=== PATIENT | male | born 1990 | race Hispanic/Latino ===

== ENCOUNTER 2019-12-13 12:54 | Inpatient (IN) | payer OTHER ==
[~2019-12-13] VITALS: Ht 157.5 cm; Wt 113.4 kg
[2019-12-13] MEDS ORDERED: AZITHROMYCIN 500MG+NS 250ML 250 ML IV ONE (13:38)
[2019-12-13] MEDS ORDERED: CEFTRIAXONE SODIUM 1 GM ONE ×2 (13:39→21:33)
[2019-12-13] MEDS ORDERED: METHYLPREDNISOLONE SOD SUCC 40MG/ML 1ML ONE ×2 (13:39→19:02)
[2019-12-13] MEDS ORDERED: ALBUTEROL INHALER 90MCG/INH IH ONE (13:41)
[2019-12-13] MEDS ORDERED: ACETAMINOPHEN EXTRA STRENGTH 500 MG TABLET ONE (13:42)
[2019-12-13 13:52] LABS: ABG BASE EXCESS 1.6 mmol/L (-2.0-3.0); ABG HCO3 23.8 mmol/L (21.0-28.0); ABG PCO2 31 mmHg (35-48)
[2019-12-13 14:44] LABS: BASOPHILS % (AUTO) 0.1 % (0.0-5.0); HEMATOCRIT 42.8 % (42-54); LYMPHOCYTES % (AUTO) 8.9 % (21.0-51.0); MEAN CORPUSCULAR HEMOGLOBIN 30.1 pg (27.0-33.0); MEAN CORPUSCULAR HGB CONC 34.3 g/dL (32.0-36.0); MEAN CORPUSCULAR VOLUME 87.7 fL (79-99); MONOCYTES % (AUTO) 3.9 % (3.0-13.0); NEUTROPHILS % (AUTO) 86.3 % (40.0-77.0); PLATELET COUNT (AUTO) 226 K/uL (130-400); RED BLOOD CELL COUNT(AUTO) 4.88 MIL/uL (4.50-6.20); RED CELL DISTRIBUTION WIDTH 12.4 % (11.0-15.5)
[2019-12-13 14:55] LABS: CARBON DIOXIDE 29 mmol/L (21-32); CHLORIDE 98 mmol/L (101-111); CREATININE 0.8 mg/dL (0.5-1.5); GLOMERULAR FILTR. RATE CALC 121 mL/min (>60); GLUCOSE,RANDOM 115 mg/dL (70-105); POTASSIUM 3.5 mmol/L (3.5-5.1); SODIUM SERUM 137 mmol/L (136-145); UREA NITROGEN, BLOOD 9 mg/dL (7-18)
[2019-12-13 15:00] LABS: APPEARANCE,URINE Clear (CLEAR); BILIRUBIN,URINE Negative (NEGATIVE); COLOR,URINE Dark Yellow (YELLOW); GLUCOSE, URINE (UA) Negative (NEGATIVE); KETONES,URINE Trace mg/dL (NEGATIVE); LEUKOCYTE ESTERASE ,URINE Negative (NEGATIVE); NITRATE,URINE Negative (NEGATIVE); OCCULT BLOOD,URINE Negative (NEGATIVE); PROTEIN,URINE POS 2+ mg/dL (NEGATIVE)
[2019-12-13 15:04] LABS: INR 0.91 (0.85-1.15); PARTIAL THROMBOPLASTIN TIME 28.8 SEC (26.3-35.5); PROTHROMBIN TIME 9.9 SEC (9.6-11.6)
[2019-12-13 15:06] LABS: ALANINE AMINOTRANSFERASE 64 U/L (12-78); ASPARTATE AMINOTRANSFERASE 31 U/L (10-37); BILIRUBIN,TOTAL 0.6 mg/dL (0.2-1.0); CREATINE KINASE, TOTAL 34 U/L (21-232); MYOGLOBIN 22 ng/mL (10-92); TOTAL PROTEIN, SERUM 7.4 g/dL (6.0-8.3); TROPONIN I < 0.04 ng/mL (0.00-0.06)
[2019-12-13 15:25] LABS: BACTERIA,URINE Rare /HPF (None Seen); MUCUS,URINE Rare LPF (None Seen); RBC,URINE 0-1 /HPF (0-1); SQUAMOUS EPITHELIAL CELL,UR Few /HPF (0-2)
[2019-12-13] MEDS ORDERED: CEFTRIAXONE SODIUM 1 GM IVP SCH (18:00)
[2019-12-13] MEDS ORDERED: DOXYCYCLINE 100MG+NS 250ML IV SCH (18:00)
[2019-12-13] MEDS ORDERED: MAG HYDROX/AL HYDROX/SIMETH ES 30 ML SUSP UDCUP PO PRN (18:00)
[2019-12-13] MEDS ORDERED: ONDANSETRON HCL 4 MG/2 ML VIAL IV PRN (18:00)
[2019-12-13] MEDS ORDERED: DIPHENHYDRAMINE HCL 25 MG CAPSULE PO PRN (18:00)
[2019-12-13] MEDS ORDERED: LACTULOSE 20 GM/30 ML UDCUP PO PRN (18:00)
[2019-12-13] MEDS ORDERED: ACETAMINOPHEN 325 MG TAB PO PRN (18:00)
[2019-12-13] MEDS ORDERED: DiphenhydrAMINE HCL 50 MG/ML VIAL IV PRN (18:00)
[2019-12-13] MEDS ORDERED: NITROGLYCERIN 0.4 MG SL TAB SL PRN (18:00)
[2019-12-13] MEDS ORDERED: ERGOCALCIFEROL (VITAMIN D2) 50,000 UNIT CAPSULE PO ONE (18:00)
[2019-12-13] MEDS ORDERED: HYDRALAZINE HCL 20 MG/ML VIAL IV PRN (18:00)
[2019-12-13 18:26] LABS: HEMOGLOBIN A1C 5.8 % (4.0-6.0)
[2019-12-13] MEDS ORDERED: BENZONATATE 100 MG CAPSULE PO ONE (20:27)
[2019-12-13] MEDS ORDERED: FUROSEMIDE 10 MG/ML 4ML VIAL ONE (20:27)
[2019-12-13] MEDS ORDERED: METHYLPREDNISOLONE SOD SUCC 125MG/2ML VIAL ONE (20:28)
[2019-12-13] MEDS: FAMOTIDINE 20MG TAB 20 MG TAB PO SCH (21:00)
[2019-12-13] MEDS ORDERED: DOXYCYCLINE 100MG+NS 250ML 250 ML IV ONE (21:33)
[2019-12-13] MEDS ORDERED: GUAIFENESIN-DM 200/20 MG 10 ML ONE (21:33)
[2019-12-13] MEDS ORDERED: ERGOCALCIFEROL (VITAMIN D2) 50,000 UNIT CAPSULE ONE (21:37)
[2019-12-13] MEDS: DOXYCYCLINE 100MG+NS 250ML 250 ML IV SCH (21:50)
[2019-12-13] MEDS: GUAIFENESIN-DM 200/20 MG 10 ML PO PRN (21:50)
[2019-12-13] MEDS: BENZONATATE 100 MG CAPSULE PO SCH (21:50)
[2019-12-13] MEDS: ACETYLCYSTEINE 600 MG CAPSULE PO SCH (21:50)
[2019-12-13] MEDS: FUROSEMIDE 10 MG/ML 4ML VIAL IVP SCH (21:50)
--- NOTE | 2019-12-13 21:50 | NUR ---
MEDS SHIFT ASSESSMENT DONE, PLEASE REFER TO CHART. DUE MEDS ADMINISTERED, TOLERATED WELL. ASSISTED WITH BEDPAN AND URINAL. KEPT RESTED AND COMFORTABLE WITH HOB ELEVATED. WILL MONITOR CLOSELY. Addendum: 12/14/19 at 0358 by ORIN GUSTAFSON RN RN Amended: Links added.
[2019-12-13] MEDS: METHYLPREDNISOLONE SOD SUCC 40MG/ML 1ML IVP SCH (22:05)
--- NOTE | 2019-12-14 02:00 | NUR ---
ROUNDS PT RESTING WELL, FAIRLY ASLEEP ON 100% NON-REBREATHER MASK. KEPT UNDISTURBED FOR NOW. WILL MONITOR PT.
[2019-12-14 04:00] VITALS: BP 130/79
[2019-12-14] MEDS ORDERED: PHARMACY COMMUNICATION MISC SCH (04:00)
--- NOTE | 2019-12-14 05:00 | NUR ---
DRAW BLOOD DRAWN FOR LAB AND SENT VIA TUBE SYSTEM. WATER AND JELL-O PROVIDED REQUESTED. TECH AED TO ASSIST PT WITH BEDPAN. FOR MORE CARE.
[2019-12-14 05:33] LABS: BASOPHILS % (AUTO) 0.1 % (0.0-5.0); HEMATOCRIT 41.6 % (42-54); LYMPHOCYTES % (AUTO) 4.8 % (21.0-51.0); MEAN CORPUSCULAR HEMOGLOBIN 30.3 pg (27.0-33.0); MEAN CORPUSCULAR HGB CONC 33.9 g/dL (32.0-36.0); MEAN CORPUSCULAR VOLUME 89.5 fL (79-99); MONOCYTES % (AUTO) 1.5 % (3.0-13.0); NEUTROPHILS % (AUTO) 92.9 % (40.0-77.0); PLATELET COUNT (AUTO) 240 K/uL (130-400); RED BLOOD CELL COUNT(AUTO) 4.65 MIL/uL (4.50-6.20); RED CELL DISTRIBUTION WIDTH 12.5 % (11.0-15.5)
[2019-12-14 05:46] LABS: BILIRUBIN,TOTAL 0.4 mg/dL (0.2-1.0); CREATININE 0.7 mg/dL (0.5-1.5); TOTAL PROTEIN, SERUM 7.4 g/dL (6.0-8.3)
[2019-12-14 06:27] LABS: CRP QUANTITATIVE 321.1 mg/L (0.00-9.0)
[2019-12-14 06:54] LABS: ALBUMIN 2.7 g/dL (3.5-5.0)
--- NOTE | 2019-12-14 08:30 | NUR ---
ASSUMED CARE OF PATIENT PATIENT O X 2, REORIENTED PATIENT TO TIME STATES, "I HAVEN'T SLEPT IN 2 DAYS. HOB 30 DEGREES. RESPIRATIONS NOTED TO BE LABORED AT TIMES OF EXERTION INCLUDING TALKING AND UPON REPOSITIONING. OXYGEN @ 100% NON REBREATHER MASK. NOTED TO DESATURATED WHEN REPOSITIONED OR EXERTION INCLUDING TALKING O2 SATURATIONS NOTED TO DROP TO 80'S. PT INSTRUCTED TO DO RELAXATION BREATHING EXERCISES. PT VOIDS PER URINAL. REPOSITIONED PATIENT IN THE BED. BED IN LOWEST POSITION. SIDE RAILS UP X 2.
[2019-12-14 08:45] VITALS: BP 146/77
[2019-12-14] MEDS: FUROSEMIDE 10 MG/ML 4ML VIAL IVP SCH ×2 (09:00→21:00)
[2019-12-14] MEDS: ZINC SULFATE 220 CAPSULE PO SCH (09:00)
[2019-12-14] MEDS: ACETYLCYSTEINE 600 MG CAPSULE PO SCH ×2 (09:00→21:00)
[2019-12-14] MEDS: DOXYCYCLINE 100MG+NS 250ML 250 ML IV SCH ×2 (09:00→21:00)
[2019-12-14] MEDS: CEFTRIAXONE SODIUM 1 GM IVP SCH ×2 (09:00→21:00)
[2019-12-14] MEDS: BENZONATATE 100 MG CAPSULE PO SCH ×3 (09:00→21:00)
[2019-12-14] MEDS: FAMOTIDINE 20MG TAB 20 MG TAB PO SCH ×2 (09:00→21:00)
[2019-12-14] MEDS: ASCORBIC ACID 500 MG TAB PO SCH (09:00)
[2019-12-14] MEDS: METHYLPREDNISOLONE SOD SUCC 40MG/ML 1ML IVP SCH ×3 (09:00→21:00)
[2019-12-14 12:30] VITALS: BP 119/74
[2019-12-14] MEDS ORDERED: ASCORBIC ACID 500 MG TAB ONE (12:30)
[2019-12-14] MEDS ORDERED: DOXYCYCLINE 100MG+NS 250ML 250 ML IV ONE (12:30)
[2019-12-14] MEDS ORDERED: GUAIFENESIN-DM 200/20 MG 10 ML ONE (12:30)
[2019-12-14] MEDS ORDERED: BENZONATATE 100 MG CAPSULE PO ONE ×2 (12:31→20:13)
[2019-12-14] MEDS ORDERED: ZINC SULFATE 220 CAPSULE ONE (12:31)
[2019-12-14] MEDS ORDERED: METHYLPREDNISOLONE SOD SUCC 125MG/2ML VIAL ONE (12:31)
[2019-12-14] MEDS ORDERED: FUROSEMIDE 10 MG/ML 4ML VIAL ONE (12:31)
[2019-12-14] MEDS ORDERED: ACETAMINOPHEN 325 MG TAB ONE ×2 (12:32→16:18)
[2019-12-14] MEDS ORDERED: FAMOTIDINE/PF 20 MG/2 ML VIAL IV ONE (12:32)
[2019-12-14] MEDS: GUAIFENESIN-DM 200/20 MG 10 ML PO PRN (12:40)
[2019-12-14] MEDS: ACETAMINOPHEN 325 MG TAB PO PRN (12:40)
--- NOTE | 2019-12-14 15:00 | NUR ---
REPORT GIVEN TO BOOGIE OCEAN EXPORT ACCOUNT MANAGER NURSE TO ASSUME CARE OF PATIENT.
[2019-12-14] MEDS ORDERED: DOXYCYCLINE HYCLATE 100 MG TABLET PO ONE (20:12)
[2019-12-14] MEDS ORDERED: FUROSEMIDE 40 MG TABLET ONE (20:12)
[2019-12-14] MEDS ORDERED: METHYLPREDNISOLONE SOD SUCC 40MG/ML 1ML ONE (20:12)
[2019-12-14] MEDS ORDERED: CEFTRIAXONE SODIUM 1 GM ONE (20:13)
--- NOTE | 2019-12-14 23:11 | NUR ---
PATIENT BEING TRANSFERRED TO ROOM 421. REPORT GIVEN TO COURT MARIE RN. VITALS STABLE. AFEBRILE. NO SIGNS OF DISTRESS NOTED UPON TRANSFER. Addendum: 12/14/19 at 2313 by ROBI MARTINEZ RN RN Amended: Links added.
[2019-12-14 23:20] VITALS: BP 122/79
--- NOTE | 2019-12-14 23:20 | NUR ---
PT ARRIVED TO ROOM 421, VIA STRETCHER. PT ON NRB. DENIES PAIN. NO DISTRESS NOTED. STATES HE HAS DIFFICULTY AMBULATING D/T NOT AMBULATING FOR A COUPLE OF DAYS. BED TO LOWEST LEVEL. RAILS UP X2. CALL LIGHT WITHIN REACH.
[2019-12-15 03:55] VITALS: BP 141/96
[2019-12-15 05:43] LABS: BASOPHILS % (AUTO) 0.1 % (0.0-5.0); HEMATOCRIT 43.2 % (42-54); MEAN CORPUSCULAR HEMOGLOBIN 29.8 pg (27.0-33.0); MEAN CORPUSCULAR HGB CONC 33.3 g/dL (32.0-36.0); MEAN CORPUSCULAR VOLUME 89.3 fL (79-99); MONOCYTES % (AUTO) 4.1 % (3.0-13.0); NEUTROPHILS % (AUTO) 88.8 % (40.0-77.0); PLATELET COUNT (AUTO) 284 K/uL (130-400); RED BLOOD CELL COUNT(AUTO) 4.84 MIL/uL (4.50-6.20); RED CELL DISTRIBUTION WIDTH 12.1 % (11.0-15.5)
[2019-12-15 05:59] LABS: ALBUMIN 2.7 g/dL (3.5-5.0); BILIRUBIN,TOTAL 0.5 mg/dL (0.2-1.0); CREATININE 0.9 mg/dL (0.5-1.5); CRP QUANTITATIVE 145.5 mg/L (0.00-9.0); POTASSIUM 3.6 mmol/L (3.5-5.1); TOTAL PROTEIN, SERUM 7.2 g/dL (6.0-8.3)
[2019-12-15] MEDS: PHARMACY COMMUNICATION** REMDESIVIR ORDER MISC SCH ×3 (06:45→22:45)
[2019-12-15 08:00] VITALS: BP 126/66
[2019-12-15] MEDS: FAMOTIDINE 20MG TAB 20 MG TAB PO SCH ×2 (09:00→21:00)
[2019-12-15] MEDS: CEFTRIAXONE SODIUM 1 GM IVP SCH ×2 (11:01→21:59)
[2019-12-15] MEDS: METHYLPREDNISOLONE SOD SUCC 40MG/ML 1ML IVP SCH ×3 (11:02→22:02)
[2019-12-15] MEDS: ACETYLCYSTEINE 600 MG CAPSULE PO SCH ×2 (11:02→22:03)
[2019-12-15] MEDS: ZINC SULFATE 220 CAPSULE PO SCH (11:03)
[2019-12-15] MEDS: BENZONATATE 100 MG CAPSULE PO SCH ×3 (11:03→22:02)
[2019-12-15] MEDS: ASCORBIC ACID 500 MG TAB PO SCH (11:03)
[2019-12-15] MEDS: ENOXAPARIN SODIUM 60 MG/0.6 ML SQ SCH (11:05)
[2019-12-15 11:15] VITALS: BP 143/94
[2019-12-15] MEDS: DOXYCYCLINE 100MG+NS 250ML 250 ML IV SCH ×2 (12:13→22:04)
--- NOTE | 2019-12-15 13:30 | NUR ---
PT IV LEAKING, INFUSION STOPPED. ATTEMPTED TO INSERT NEW IV, THIS NURSE WAS UNSUCCESSFUL.
[2019-12-15 16:00] VITALS: BP 122/87
--- NOTE | 2019-12-15 17:50 | NUR ---
-PT IS AWAKE AND ORIENTED UPON INITIAL ASSESSMENT. PT HAS ON NON-REBREATHER WHILE PRONING. PT OBSERVED WITH SOME SHORTNESS OF BREATH WITH EXERTION WHILE TALKING. PT ASKED FOR A MOMENT TO 'CATCH HIS BREATH.' PT ABLE TO CALM HIMSELF USING PURSED LIP TECHNIQUES. UPDATED PT WITH PLAN OF CARE, PT ADVISED TO CALL FOR ASSISTANCE AND THAT HE IS ON BEDREST, PT AGREES TO PLAN OF CARE. POSSESSIONS WITHIN REACH.
--- NOTE | 2019-12-15 18:27 | NUR ---
CM NOTE SW attempted to reach patient to complete initial assessment but there was no answer. No other next of kin noted on patient's demographic sheet.
[2019-12-15] MEDS ORDERED: REMDESIVIR (INVESTIGATIONAL) 100 MG in SODIUM CHLORIDE 0.9% 250 ML IV SCH (19:45)
[2019-12-15 20:39] VITALS: BP 139/82
[2019-12-15] MEDS: ACETAMINOPHEN 325 MG TAB PO PRN (23:00)
[2019-12-15 23:37] VITALS: BP 122/89
[2019-12-16] MEDS: GUAIFENESIN-DM 200/20 MG 10 ML PO PRN ×2 (03:48→11:12)
--- NOTE | 2019-12-16 03:48 | NUR ---
PT EXPERIENCING A COUGHING EPISODE, PT IS INSTRUCTED TO BREATH CORRECTLY AND NOT TO HYPERVENTILATE. PT STATES HE IS SCARED D/T COUGHING UP PINK TINGE SPUTUM. PT IS ON NRB 100% AT 15L. COMFORTED PT, CHECKED HIS VITALS, BP 10/73, PULSE 70, O2 WAS AT 85% WHEN HE WAS COUGHING BUT THEN WAS UP TO 95%. ROBITUSSIN WAS GIVEN FOR COUGH, ZOFRAN WAS GIVEN FOR NAUSEA. PT HAS CALMED DOWN AND RESTING. CALL LIGHT WITHIN REACH.
[2019-12-16 04:07] VITALS: BP 108/73
[2019-12-16 06:25] LABS: BASOPHILS % (AUTO) 0.1 % (0.0-5.0); LYMPHOCYTES % (AUTO) 5.4 % (21.0-51.0); MEAN CORPUSCULAR HEMOGLOBIN 30.5 pg (27.0-33.0); MEAN CORPUSCULAR HGB CONC 33.7 g/dL (32.0-36.0); MEAN CORPUSCULAR VOLUME 90.5 fL (79-99); MONOCYTES % (AUTO) 4.2 % (3.0-13.0); NEUTROPHILS % (AUTO) 89.4 % (40.0-77.0); PLATELET COUNT (AUTO) 328 K/uL (130-400); RED BLOOD CELL COUNT(AUTO) 4.75 MIL/uL (4.50-6.20); RED CELL DISTRIBUTION WIDTH 11.8 % (11.0-15.5); WHITE BLOOD COUNT (AUTO) 7.6 K/uL (4.8-10.8)
[2019-12-16] MEDS: PHARMACY COMMUNICATION** REMDESIVIR ORDER MISC SCH ×3 (06:45→22:45)
[2019-12-16 06:52] LABS: ALBUMIN 2.7 g/dL (3.5-5.0); BILIRUBIN,TOTAL 0.6 mg/dL (0.2-1.0); CREATININE 0.7 mg/dL (0.5-1.5); CRP QUANTITATIVE 61.1 mg/L (0.00-9.0); TOTAL PROTEIN, SERUM 6.9 g/dL (6.0-8.3)
[2019-12-16 08:00] VITALS: BP 142/80
[2019-12-16] MEDS: DOXYCYCLINE 100MG+NS 250ML 250 ML IV SCH ×2 (09:00→21:43)
[2019-12-16] MEDS: PANTOPRAZOLE SODIUM 40 MG TABLET.DR PO SCH (09:13)
[2019-12-16] MEDS: ZINC SULFATE 220 CAPSULE PO SCH (09:14)
[2019-12-16] MEDS: BENZONATATE 100 MG CAPSULE PO SCH ×3 (09:14→21:44)
[2019-12-16] MEDS: ASCORBIC ACID 500 MG TAB PO SCH (09:14)
[2019-12-16] MEDS: METHYLPREDNISOLONE SOD SUCC 40MG/ML 1ML IVP SCH ×3 (09:15→21:44)
[2019-12-16] MEDS: CEFTRIAXONE SODIUM 1 GM IVP SCH ×2 (09:15→21:44)
[2019-12-16] MEDS: ENOXAPARIN SODIUM 60 MG/0.6 ML SQ SCH ×2 (09:16→21:54)
[2019-12-16] MEDS: ACETYLCYSTEINE 600 MG CAPSULE PO SCH ×2 (09:22→21:44)
[2019-12-16] MEDS: ACETAMINOPHEN 325 MG TAB PO PRN (11:17)
[2019-12-16 12:04] VITALS: BP 155/87
[2019-12-16] MEDS ORDERED: CHLORDIAZEPOXIDE HCL 25 MG CAP PO ONE (13:15)
[2019-12-16 17:06] VITALS: BP 135/90
--- NOTE | 2019-12-16 18:49 | NUR ---
rounding completed with pulmonary. new orders given and entered. Plan of care discussed with pt.
[2019-12-16 20:54] VITALS: BP 141/64
[2019-12-16] MEDS ORDERED: METHYLPREDNISOLONE SOD SUCC 40MG/ML 1ML IVP SCH (21:00)
[2019-12-17] MEDS: GUAIFENESIN-DM 200/20 MG 10 ML PO PRN (01:32)
[2019-12-17 01:53] VITALS: BP 126/76
--- NOTE | 2019-12-17 04:00 | NUR ---
pt had a dark green, runny, mucusy diarrhea BM; pt was cleaned and bedding changed; Cdiff rule-out protocol implemented at this time; pt informed to notify nursing staff should he experience another episode; Diane RN
[2019-12-17 05:01] VITALS: BP 138/79
[2019-12-17] MEDS: PHARMACY COMMUNICATION** REMDESIVIR ORDER MISC SCH ×3 (05:01→21:51)
[2019-12-17 09:44] VITALS: BP 106/68
[2019-12-17 10:04] LABS: LACTATE DEHYDROGENASE 298 U/L (81-234)
[2019-12-17] MEDS: PANTOPRAZOLE SODIUM 40 MG TABLET.DR PO SCH (10:23)
[2019-12-17] MEDS: ACETYLCYSTEINE 600 MG CAPSULE PO SCH ×2 (10:23→21:50)
[2019-12-17] MEDS: ASCORBIC ACID 500 MG TAB PO SCH (10:23)
[2019-12-17] MEDS: METHYLPREDNISOLONE SOD SUCC 40MG/ML 1ML IVP SCH ×2 (10:24→21:50)
[2019-12-17] MEDS: ENOXAPARIN SODIUM 60 MG/0.6 ML SQ SCH ×2 (10:24→21:51)
[2019-12-17] MEDS: CEFTRIAXONE SODIUM 1 GM IVP SCH ×2 (10:24→21:50)
[2019-12-17] MEDS: BENZONATATE 100 MG CAPSULE PO SCH ×3 (10:27→21:50)
[2019-12-17] MEDS: DOXYCYCLINE 100MG+NS 250ML 250 ML IV SCH ×2 (11:31→21:49)
[2019-12-17 12:23] VITALS: BP 95/40
--- NOTE | 2019-12-17 15:03 | NUR ---
Family notification Attempted to make call today and yesterday 12/16/2019 to family to make aware of patient's condition. Pt has self as next of kin. No other numbers available.
--- NOTE | 2019-12-17 16:07 | NUR ---
CALL TO PATIENT'S ROOM FOR D/C PLANNING SPOKE TO PATIENT BRIEFLY, FOR PRELIM D/C PLANNING, STATES LIVES ALONE, WOULD NOT VERIFY ADDRESS, DID ADD FATHER FOR EMERGENCY CONTACT THONG FLOYD [phone] ACTIVE, INDEPENDENT, NO DME, EMPLOYED- DCP HOME, UPDATED FAX SENT TO REGISTRATION Addendum: 12/17/19 at 1615 by MECHE GERBER RN CM Amended: Links added.
[2019-12-17 17:41] VITALS: BP 123/76
--- NOTE | 2019-12-17 18:31 | NUR ---
spoke with pt's Jose updated with pt's plan of care. 1600 unit 1 of plasma started, monitored per protocol. Pt tolerated well. Finished unit at 1815. Vitals documented and charted. Called blood bank to prepare second unit.
[2019-12-17 20:00] VITALS: BP 124/77
[2019-12-18] VITALS (7 sets, daily range): BP systolic 123–164; BP diastolic 62–94
--- NOTE | 2019-12-18 00:20 | NUR ---
ptsplasma infusion started at this time and ended at 58; pt tolerated well; no distress noted at this time. Diane RN
[2019-12-18] MEDS: PHARMACY COMMUNICATION** REMDESIVIR ORDER MISC SCH ×3 (05:05→22:45)
[2019-12-18 07:20] LABS: BASOPHILS % (AUTO) 0.1 % (0.0-5.0); HEMATOCRIT 38.9 % (42-54); LYMPHOCYTES % (AUTO) 5.1 % (21.0-51.0); MEAN CORPUSCULAR HEMOGLOBIN 30.4 pg (27.0-33.0); MEAN CORPUSCULAR HGB CONC 35.2 g/dL (32.0-36.0); MEAN CORPUSCULAR VOLUME 86.4 fL (79-99); MONOCYTES % (AUTO) 5.1 % (3.0-13.0); NEUTROPHILS % (AUTO) 87.8 % (40.0-77.0); PLATELET COUNT (AUTO) 289 K/uL (130-400); RED CELL DISTRIBUTION WIDTH 11.2 % (11.0-15.5); WHITE BLOOD COUNT (AUTO) 8.6 K/uL (4.8-10.8)
[2019-12-18 07:30] LABS: CREATININE 0.8 mg/dL (0.5-1.5); POTASSIUM 3.9 mmol/L (3.5-5.1)
[2019-12-18] MEDS: METHYLPREDNISOLONE SOD SUCC 40MG/ML 1ML IVP SCH ×2 (09:26→19:56)
[2019-12-18] MEDS: PANTOPRAZOLE SODIUM 40 MG TABLET.DR PO SCH (09:26)
[2019-12-18] MEDS: ACETYLCYSTEINE 600 MG CAPSULE PO SCH ×2 (09:26→19:56)
[2019-12-18] MEDS: BENZONATATE 100 MG CAPSULE PO SCH ×3 (09:26→19:56)
[2019-12-18] MEDS: CEFTRIAXONE SODIUM 1 GM IVP SCH ×2 (09:26→19:56)
[2019-12-18] MEDS: ASCORBIC ACID 500 MG TAB PO SCH (09:26)
[2019-12-18] MEDS: DOXYCYCLINE 100MG+NS 250ML 250 ML IV SCH ×2 (09:27→19:56)
[2019-12-18] MEDS: ENOXAPARIN SODIUM 60 MG/0.6 ML SQ SCH ×2 (09:29→19:57)
[2019-12-19] VITALS (7 sets, daily range): BP systolic 126–151; BP diastolic 69–80
[2019-12-19 06:05] LABS: BASOPHILS % (AUTO) 0.4 % (0.0-5.0); HEMATOCRIT 40.7 % (42-54); LYMPHOCYTES % (AUTO) 6.3 % (21.0-51.0); MEAN CORPUSCULAR HEMOGLOBIN 30.6 pg (27.0-33.0); MEAN CORPUSCULAR HGB CONC 35.4 g/dL (32.0-36.0); MEAN CORPUSCULAR VOLUME 86.4 fL (79-99); MONOCYTES % (AUTO) 3.8 % (3.0-13.0); NEUTROPHILS % (AUTO) 84.3 % (40.0-77.0); PLATELET COUNT (AUTO) 310 K/uL (130-400); RED BLOOD CELL COUNT(AUTO) 4.71 MIL/uL (4.50-6.20); RED CELL DISTRIBUTION WIDTH 11.2 % (11.0-15.5); WHITE BLOOD COUNT (AUTO) 8.3 K/uL (4.8-10.8)
[2019-12-19 06:49] LABS: LACTATE DEHYDROGENASE 350 U/L (81-234)
[2019-12-19] MEDS: METHYLPREDNISOLONE SOD SUCC 40MG/ML 1ML IVP SCH ×2 (08:56→21:17)
[2019-12-19] MEDS: PANTOPRAZOLE SODIUM 40 MG TABLET.DR PO SCH (08:56)
[2019-12-19] MEDS: CEFTRIAXONE SODIUM 1 GM IVP SCH (08:56)
[2019-12-19] MEDS: ASCORBIC ACID 500 MG TAB PO SCH (08:56)
[2019-12-19] MEDS: ACETYLCYSTEINE 600 MG CAPSULE PO SCH ×2 (08:56→21:17)
[2019-12-19] MEDS: ENOXAPARIN SODIUM 60 MG/0.6 ML SQ SCH ×2 (08:57→21:19)
[2019-12-19] MEDS: BENZONATATE 100 MG CAPSULE PO SCH ×3 (09:00→21:17)
[2019-12-19] MEDS: DOXYCYCLINE 100MG+NS 250ML 250 ML IV SCH ×2 (09:00→21:00)
--- NOTE | 2019-12-19 11:30 | NUR ---
PT WENT TO PRONE POSITION AND HAD SOB @78% O2. PT ON NR @ 15 LITERS. STARTED PERCUSSION TO HIS BACK WHICH HELP HIM RELAX AND INCREASE HIS 02 TO 94%. WILL CONTINUE TO MONITOR.
[2019-12-19] MEDS: DOXYCYCLINE HYCLATE 100 MG TABLET PO SCH ×2 (12:49→21:16)
[2019-12-19] MEDS ORDERED: CEFEPIME HCL 2 GM VIAL IVP SCH (14:00)
[2019-12-19] MEDS ORDERED: METHYLPREDNISOLONE SOD SUCC 40MG/ML 1ML IVP SCH (14:30)
--- NOTE | 2019-12-19 14:52 | NUR ---
PT GOT UP TO BATH NO COMPLICATION WAS ABLE TO MARIUM BATH.
[2019-12-19] MEDS ORDERED: PHARMACY COMMUNICATION MISC SCH (22:45)
[2019-12-20 03:57] VITALS: BP 135/70
[2019-12-20 06:01] LABS: HEMATOCRIT 42.3 % (42-54); MEAN CORPUSCULAR HEMOGLOBIN 30.2 pg (27.0-33.0); MEAN CORPUSCULAR VOLUME 86.3 fL (79-99); PLATELET COUNT (AUTO) 343 K/uL (130-400); RED CELL DISTRIBUTION WIDTH 11.2 % (11.0-15.5)
[2019-12-20 06:25] LABS: CREATININE 0.6 mg/dL (0.5-1.5); POTASSIUM 4.3 mmol/L (3.5-5.1)
[2019-12-20 06:58] LABS: LYMPHOCYTES % (MANUAL) 9 % (22-44); MAN.DIFF COMMENT-IMPRESSION MANUAL DIFFERENTIAL; MONOCYTES % (MANUAL) 3 % (2-9); PLATELET MORPHOLOGY COMMENT ADEQUATE; SEGMENTED NEUTROPHILS % 88 % (40-70)
[2019-12-20 07:30] VITALS: BP 125/69
--- NOTE | 2019-12-20 08:26 | NUR ---
GEORGIA KELLEY spoke with pt. who reported that he is single and resides with his mother and grandmother. Pt. is disabled and is not employed. Pt. is decision maker. Pt. does not have HH or Oxygen. Pt. receives Dialysis at [facility]/[place], MWF-AM shift Pt. has a walker at home. Pt. has provider services 2h/daily-[facility]. Pharmacy: [facility]/[place] [facility] [place] Pt. has Medicare A&B Pt. with supportive family. Pt's. mother to provide transportation at discharge. Gwen Keller [address] [facility] [phone] Addendum: 12/20/19 at 0847 by CAMPOS MARTINEZ SS Disregard Note Wrong Patient: Documented on wrong patient.
[2019-12-20] MEDS: ASCORBIC ACID 500 MG TAB PO SCH (09:03)
[2019-12-20] MEDS: BENZONATATE 100 MG CAPSULE PO SCH ×3 (09:03→20:44)
[2019-12-20] MEDS: DOXYCYCLINE HYCLATE 100 MG TABLET PO SCH ×2 (09:03→20:45)
[2019-12-20] MEDS: PANTOPRAZOLE SODIUM 40 MG TABLET.DR PO SCH (09:03)
[2019-12-20] MEDS: CEFEPIME HCL 2 GM VIAL IVP SCH ×2 (09:03→20:44)
[2019-12-20] MEDS: ACETYLCYSTEINE 600 MG CAPSULE PO SCH ×2 (09:03→20:44)
[2019-12-20] MEDS: FUROSEMIDE 10 MG/ML 2ML VIAL IV SCH (09:04)
[2019-12-20] MEDS: METHYLPREDNISOLONE SOD SUCC 40MG/ML 1ML IVP SCH ×3 (09:04→20:44)
[2019-12-20] MEDS: ENOXAPARIN SODIUM 60 MG/0.6 ML SQ SCH ×2 (09:05→20:46)
[2019-12-20] MEDS: DOXYCYCLINE 100MG+NS 250ML 250 ML IV SCH (09:14)
[2019-12-20 11:00] VITALS: BP 123/78
[2019-12-20] MEDS: PHARMACY COMMUNICATION MISC SCH ×2 (13:15→19:15)
[2019-12-20 16:00] VITALS: BP 134/72
[2019-12-20] MEDS ORDERED: COMPOUND IV REFRIGERATED 1 EACH IVSOLN MISC PRN (16:00)
[2019-12-20] MEDS ORDERED: REMDESIVIR (EUA) 520 200 MG in SODIUM CHLORIDE 0.9% 250 ML IV SCH (16:00)
[2019-12-20 19:00] VITALS: BP 126/75
[2019-12-20 23:24] VITALS: BP 146/90
[2019-12-21] MEDS: PHARMACY COMMUNICATION MISC SCH ×4 (01:15→19:15)
[2019-12-21 03:52] VITALS: BP 116/67
[2019-12-21 06:48] LABS: BASOPHILS % (AUTO) 0.7 % (0.0-5.0); HEMATOCRIT 41.9 % (42-54); LYMPHOCYTES % (AUTO) 5.8 % (21.0-51.0); MEAN CORPUSCULAR HEMOGLOBIN 30.3 pg (27.0-33.0); MEAN CORPUSCULAR HGB CONC 35.1 g/dL (32.0-36.0); MEAN CORPUSCULAR VOLUME 86.4 fL (79-99); MONOCYTES % (AUTO) 6.3 % (3.0-13.0); NEUTROPHILS % (AUTO) 79.5 % (40.0-77.0); PLATELET COUNT (AUTO) 372 K/uL (130-400); RED BLOOD CELL COUNT(AUTO) 4.85 MIL/uL (4.50-6.20); RED CELL DISTRIBUTION WIDTH 11.2 % (11.0-15.5); WHITE BLOOD COUNT (AUTO) 9.5 K/uL (4.8-10.8)
[2019-12-21 07:31] LABS: ALBUMIN 2.8 g/dL (3.5-5.0); BILIRUBIN,DIRECT 0.1 mg/dL (0.0-0.3); BILIRUBIN,TOTAL 0.6 mg/dL (0.2-1.0); CREATININE 0.7 mg/dL (0.5-1.5); CRP QUANTITATIVE 20.7 mg/L (0.00-9.0); POTASSIUM 4.3 mmol/L (3.5-5.1); TOTAL PROTEIN, SERUM 6.5 g/dL (6.0-8.3)
[2019-12-21 08:00] VITALS: BP 119/78
[2019-12-21] MEDS: ENOXAPARIN SODIUM 60 MG/0.6 ML SQ SCH ×2 (08:18→21:20)
[2019-12-21] MEDS: ASCORBIC ACID 500 MG TAB PO SCH (08:18)
[2019-12-21] MEDS: ACETYLCYSTEINE 600 MG CAPSULE PO SCH ×2 (08:18→21:19)
[2019-12-21] MEDS: DOXYCYCLINE HYCLATE 100 MG TABLET PO SCH ×2 (08:19→21:19)
[2019-12-21] MEDS: PANTOPRAZOLE SODIUM 40 MG TABLET.DR PO SCH (08:19)
[2019-12-21] MEDS: FUROSEMIDE 10 MG/ML 2ML VIAL IV SCH (08:20)
[2019-12-21] MEDS: CEFEPIME HCL 2 GM VIAL IVP SCH ×2 (08:20→21:02)
[2019-12-21] MEDS: METHYLPREDNISOLONE SOD SUCC 40MG/ML 1ML IVP SCH ×3 (10:58→21:19)
[2019-12-21] MEDS: BENZONATATE 100 MG CAPSULE PO SCH ×3 (10:58→21:19)
[2019-12-21 12:00] VITALS: BP 120/72
[2019-12-21] MEDS: PHARMACY COMMUNICATION** REMDESIVIR ORDER MISC SCH ×2 (14:45→22:45)
[2019-12-21 16:00] VITALS: BP 106/58
[2019-12-21] MEDS: REMDESIVIR (EUA) 520 100 MG in SODIUM CHLORIDE 0.9% 250 ML IV SCH (16:53)
[2019-12-21] MEDS ORDERED: REMDESIVIR (EUA) 520 100 MG VIAL IV ONE (16:53)
[2019-12-21 19:00] VITALS: BP 128/70
[2019-12-21 23:12] VITALS: BP 122/74
[2019-12-22] MEDS: PHARMACY COMMUNICATION MISC SCH ×4 (01:15→18:37)
[2019-12-22 03:00] VITALS: BP 118/69
[2019-12-22 06:57] LABS: BASOPHILS % (AUTO) 0.7 % (0.0-5.0); HEMATOCRIT 43.8 % (42-54); LYMPHOCYTES % (AUTO) 5.3 % (21.0-51.0); MEAN CORPUSCULAR HEMOGLOBIN 30.2 pg (27.0-33.0); MEAN CORPUSCULAR HGB CONC 34.7 g/dL (32.0-36.0); MEAN CORPUSCULAR VOLUME 87.1 fL (79-99); MONOCYTES % (AUTO) 4.7 % (3.0-13.0); NEUTROPHILS % (AUTO) 81.6 % (40.0-77.0); PLATELET COUNT (AUTO) 373 K/uL (130-400); RED BLOOD CELL COUNT(AUTO) 5.03 MIL/uL (4.50-6.20); RED CELL DISTRIBUTION WIDTH 11.6 % (11.0-15.5); WHITE BLOOD COUNT (AUTO) 8.7 K/uL (4.8-10.8)
--- NOTE | 2019-12-22 07:01 | NUR ---
Patient gets SOB on exertion,remains on NRB 100% Fio2 unable to weigh patient today .
[2019-12-22 07:31] LABS: ALANINE AMINOTRANSFERASE 308 U/L (12-78); ALBUMIN 2.9 g/dL (3.5-5.0); ASPARTATE AMINOTRANSFERASE 54 U/L (10-37); BILIRUBIN,DIRECT 0.1 mg/dL (0.0-0.3); BILIRUBIN,TOTAL 0.6 mg/dL (0.2-1.0); CARBON DIOXIDE 26 mmol/L (21-32); CHLORIDE 102 mmol/L (101-111); CREATININE 0.8 mg/dL (0.5-1.5); GLOMERULAR FILTR. RATE CALC 121 mL/min (>60); GLUCOSE,RANDOM 118 mg/dL (70-105); LACTATE DEHYDROGENASE 298 U/L (81-234); POTASSIUM 4.6 mmol/L (3.5-5.1); SODIUM SERUM 135 mmol/L (136-145); TOTAL PROTEIN, SERUM 6.5 g/dL (6.0-8.3); UREA NITROGEN, BLOOD 22 mg/dL (7-18)
[2019-12-22 08:00] VITALS: BP 102/60
[2019-12-22] MEDS: CEFEPIME HCL 2 GM VIAL IVP SCH ×2 (10:32→19:35)
[2019-12-22] MEDS: METHYLPREDNISOLONE SOD SUCC 40MG/ML 1ML IVP SCH ×3 (10:33→21:16)
[2019-12-22] MEDS: FUROSEMIDE 10 MG/ML 2ML VIAL IV SCH (10:33)
[2019-12-22] MEDS: ASCORBIC ACID 500 MG TAB PO SCH (10:34)
[2019-12-22] MEDS: DOXYCYCLINE HYCLATE 100 MG TABLET PO SCH ×2 (10:34→19:37)
[2019-12-22] MEDS: ENOXAPARIN SODIUM 60 MG/0.6 ML SQ SCH ×2 (10:34→19:37)
[2019-12-22] MEDS: PANTOPRAZOLE SODIUM 40 MG TABLET.DR PO SCH (10:34)
[2019-12-22] MEDS: ACETYLCYSTEINE 600 MG CAPSULE PO SCH ×2 (10:34→19:37)
[2019-12-22] MEDS: BENZONATATE 100 MG CAPSULE PO SCH ×3 (10:34→19:37)
[2019-12-22 12:00] VITALS: BP 128/61
[2019-12-22 16:00] VITALS: BP 117/70
[2019-12-22] MEDS: REMDESIVIR (EUA) 520 100 MG in SODIUM CHLORIDE 0.9% 250 ML IV SCH (16:00)
[2019-12-22] MEDS ORDERED: REMDESIVIR (EUA) 520 100 MG VIAL IV ONE (16:53)
--- NOTE | 2019-12-22 18:38 | NUR ---
pt and oriented, denies pain and discomfort. pt proned 75% of the shift. pt continues with Venti mask,
[2019-12-22 19:20] VITALS: BP 111/68
[2019-12-22] MEDS ORDERED: HYDROMORPHONE HCL 2 MG/ML VIAL ONE (21:16)
[2019-12-22 23:34] VITALS: BP 124/75
[2019-12-23] MEDS: PHARMACY COMMUNICATION MISC SCH ×3 (00:20→19:15)
[2019-12-23] MEDS ORDERED: MORPHINE SULFATE 2 MG/ML 1ML SYG ONE (00:41)
[2019-12-23] MEDS: HYDROMORPHONE HCL 2 MG/ML VIAL IVP PRN ×3 (01:46→22:39)
[2019-12-23 03:30] VITALS: BP 114/71
[2019-12-23 07:46] LABS: BASOPHILS % (AUTO) 0.6 % (0.0-5.0); HEMATOCRIT 44.8 % (42-54); LYMPHOCYTES % (AUTO) 3.5 % (21.0-51.0); MEAN CORPUSCULAR HEMOGLOBIN 30.7 pg (27.0-33.0); MEAN CORPUSCULAR VOLUME 87.7 fL (79-99); MONOCYTES % (AUTO) 5.2 % (3.0-13.0); NEUTROPHILS % (AUTO) 84.7 % (40.0-77.0); PLATELET COUNT (AUTO) 349 K/uL (130-400); RED BLOOD CELL COUNT(AUTO) 5.11 MIL/uL (4.50-6.20); RED CELL DISTRIBUTION WIDTH 11.6 % (11.0-15.5); WHITE BLOOD COUNT (AUTO) 12.5 K/uL (4.8-10.8)
[2019-12-23] MEDS: ACETYLCYSTEINE 600 MG CAPSULE PO SCH ×2 (08:17→20:46)
[2019-12-23] MEDS: ASCORBIC ACID 500 MG TAB PO SCH (08:17)
[2019-12-23] MEDS: DOXYCYCLINE HYCLATE 100 MG TABLET PO SCH ×2 (08:17→20:46)
[2019-12-23] MEDS: PANTOPRAZOLE SODIUM 40 MG TABLET.DR PO SCH (08:17)
[2019-12-23] MEDS: CEFEPIME HCL 2 GM VIAL IVP SCH ×2 (08:17→20:45)
[2019-12-23] MEDS: FUROSEMIDE 10 MG/ML 2ML VIAL IV SCH (08:21)
[2019-12-23] MEDS: ACETAMINOPHEN 325 MG TAB PO PRN (08:21)
[2019-12-23] MEDS: ENOXAPARIN SODIUM 60 MG/0.6 ML SQ SCH ×2 (08:22→20:46)
[2019-12-23] MEDS: BENZONATATE 100 MG CAPSULE PO SCH ×3 (08:24→20:46)
[2019-12-23] MEDS: METHYLPREDNISOLONE SOD SUCC 40MG/ML 1ML IVP SCH ×3 (08:25→20:46)
[2019-12-23 08:31] LABS: ALANINE AMINOTRANSFERASE 325 U/L (12-78); ASPARTATE AMINOTRANSFERASE 46 U/L (10-37); BILIRUBIN,TOTAL 0.6 mg/dL (0.2-1.0); CARBON DIOXIDE 25 mmol/L (21-32); CHLORIDE 103 mmol/L (101-111); CREATININE 0.7 mg/dL (0.5-1.5); GLOMERULAR FILTR. RATE CALC 142 mL/min (>60); GLUCOSE,RANDOM 113 mg/dL (70-105); POTASSIUM 4.3 mmol/L (3.5-5.1); SODIUM SERUM 137 mmol/L (136-145); TOTAL PROTEIN, SERUM 6.7 g/dL (6.0-8.3); UREA NITROGEN, BLOOD 24 mg/dL (7-18)
[2019-12-23 09:27] VITALS: BP 107/60
[2019-12-23 11:37] VITALS: BP 107/58
[2019-12-23 16:41] VITALS: BP 128/74
[2019-12-23] MEDS ORDERED: REMDESIVIR (EUA) 520 100 MG VIAL IV ONE (17:14)
[2019-12-23] MEDS: REMDESIVIR (EUA) 520 100 MG in SODIUM CHLORIDE 0.9% 250 ML IV SCH (17:14)
--- NOTE | 2019-12-23 19:00 | NUR ---
distress DAY RN IN ROOM WITH PATIENT WHO IS SATURATING IN THE 80'S ON NRB AT 15 LPM. PATIENT WAS PRONE BUT WAS STILL SATURATING IN AT 83%. A RAPID RESPONSE WAS CALLED FOR THIS PATIENT. Dilip [employer] SYSTEM[employer] REQUIREMENTS PLANNER ARRIVED TO GIVE ORDERS FOR PATIENT. AN ABG AND LABS WERE ORDERED AND A CALL TO DR AUGUST WAS MADE. DR AUGUST CALLED BACK AND WAS INFORMED OF PATIENT CONDITION. HE ORDERED HIGH FLOW OXYGEN AT 60 LITERS AND TO PRONE PATIENT IF HE DID NOT IMPROVE IN ONE HOUR, PATIENT MAY HAVE TO BE INTUBATED. PATIENT DID RESPOND TO HIGH FLOW OXYGEN AND HIS SATURATION CAME UP TO 91%. PATIENT WAS ALSO STARED ON ALBUTEROL INHALER EVERY FOUR HOURS. WILL CONTINUE TO MONITOR PATIENT THROUGH OUT THE NIGHT.
[2019-12-23 19:45] LABS: ABG BASE EXCESS -4.2 mmol/L (-2.0-3.0); ABG HCO3 19.7 mmol/L (21.0-28.0); ABG OXYGEN SATURATION 83.6 % (95.0-99.0); ABG PCO2 33 mmHg (35-48)
[2019-12-23 19:54] LABS: HEMATOCRIT 47.9 % (42-54); MEAN CORPUSCULAR HEMOGLOBIN 30.5 pg (27.0-33.0); MEAN CORPUSCULAR HGB CONC 34.7 g/dL (32.0-36.0); MEAN CORPUSCULAR VOLUME 87.9 fL (79-99); PLATELET COUNT (AUTO) 350 K/uL (130-400); RED BLOOD CELL COUNT(AUTO) 5.45 MIL/uL (4.50-6.20); RED CELL DISTRIBUTION WIDTH 11.8 % (11.0-15.5); WHITE BLOOD COUNT (AUTO) 14.1 K/uL (4.8-10.8)
[2019-12-23] MEDS ORDERED: ALBUTEROL INHALER 90MCG/INH IH PRN (20:15)
[2019-12-23 20:27] LABS: ALANINE AMINOTRANSFERASE 402 U/L (12-78); ALBUMIN 3.2 g/dL (3.5-5.0); ASPARTATE AMINOTRANSFERASE 71 U/L (10-37); BILIRUBIN,TOTAL 0.7 mg/dL (0.2-1.0); CARBON DIOXIDE 26 mmol/L (21-32); CHLORIDE 102 mmol/L (101-111); CREATINE KINASE, TOTAL 53 U/L (21-232); CREATININE 1.1 mg/dL (0.5-1.5); GLOMERULAR FILTR. RATE CALC 84 mL/min (>60); GLUCOSE,RANDOM 150 mg/dL (70-105); MYOGLOBIN 47 ng/mL (10-92); POTASSIUM 4.6 mmol/L (3.5-5.1); SODIUM SERUM 135 mmol/L (136-145); TOTAL PROTEIN, SERUM 6.2 g/dL (6.0-8.3); TROPONIN I < 0.04 ng/mL (0.00-0.06); UREA NITROGEN, BLOOD 26 mg/dL (7-18)
[2019-12-23 20:34] LABS: LYMPHOCYTES % (MANUAL) 5 % (22-44); MAN.DIFF COMMENT-IMPRESSION MANUAL DIFFERENTIAL; REACTIVE LYMPHOCYTES 1 % (0-0); SEGMENTED NEUTROPHILS % 94 % (40-70)
[2019-12-23] MEDS: MORPHINE SULFATE 2 MG/ML 1ML SYG IVP PRN (21:16)
[2019-12-23 21:48] VITALS: BP 104/59
[2019-12-23] MEDS: ALBUTEROL INHALER 90MCG/INH IH SCH (21:51)
[2019-12-23] MEDS ORDERED: MORPHINE SULFATE 2 MG/ML 1ML SYG IVP ONE (22:10)
[2019-12-24 00:06] VITALS: BP 107/57
[2019-12-24] MEDS: ALBUTEROL INHALER 90MCG/INH IH SCH ×6 (00:15→19:27)
[2019-12-24] MEDS: PHARMACY COMMUNICATION MISC SCH ×6 (00:47→19:29)
[2019-12-24] MEDS: HYDROMORPHONE HCL 2 MG/ML VIAL IVP PRN ×5 (00:55→22:57)
[2019-12-24] MEDS: MORPHINE SULFATE 2 MG/ML 1ML SYG IVP PRN ×3 (04:05→22:05)
[2019-12-24 06:02] VITALS: BP 113/64
[2019-12-24 06:25] LABS: BASOPHILS % (AUTO) 0.5 % (0.0-5.0); LYMPHOCYTES % (AUTO) 2.6 % (21.0-51.0); MEAN CORPUSCULAR HEMOGLOBIN 30.7 pg (27.0-33.0); MEAN CORPUSCULAR HGB CONC 35.1 g/dL (32.0-36.0); MEAN CORPUSCULAR VOLUME 87.5 fL (79-99); MONOCYTES % (AUTO) 6.5 % (3.0-13.0); PLATELET COUNT (AUTO) 358 K/uL (130-400); RED BLOOD CELL COUNT(AUTO) 5.37 MIL/uL (4.50-6.20); RED CELL DISTRIBUTION WIDTH 11.9 % (11.0-15.5); WHITE BLOOD COUNT (AUTO) 17.5 K/uL (4.8-10.8)
[2019-12-24 06:44] LABS: CARBON DIOXIDE 25 mmol/L (21-32); CHLORIDE 102 mmol/L (101-111); CREATININE 0.8 mg/dL (0.5-1.5); GLOMERULAR FILTR. RATE CALC 121 mL/min (>60); GLUCOSE,RANDOM 124 mg/dL (70-105); LACTATE DEHYDROGENASE 330 U/L (81-234); POTASSIUM 4.5 mmol/L (3.5-5.1); SODIUM SERUM 138 mmol/L (136-145); UREA NITROGEN, BLOOD 24 mg/dL (7-18)
[2019-12-24 08:00] VITALS: BP 97/54
[2019-12-24] MEDS: ASCORBIC ACID 500 MG TAB PO SCH (09:13)
[2019-12-24] MEDS: DOXYCYCLINE HYCLATE 100 MG TABLET PO SCH ×2 (09:13→19:26)
[2019-12-24] MEDS: PANTOPRAZOLE SODIUM 40 MG TABLET.DR PO SCH (09:13)
[2019-12-24] MEDS: ACETYLCYSTEINE 600 MG CAPSULE PO SCH ×2 (09:14→19:26)
[2019-12-24] MEDS: BENZONATATE 100 MG CAPSULE PO SCH ×3 (09:14→19:26)
[2019-12-24] MEDS: METHYLPREDNISOLONE SOD SUCC 40MG/ML 1ML IVP SCH ×3 (09:15→19:27)
[2019-12-24] MEDS: CEFEPIME HCL 2 GM VIAL IVP SCH ×2 (09:16→19:25)
[2019-12-24] MEDS: ENOXAPARIN SODIUM 60 MG/0.6 ML SQ SCH ×2 (09:16→19:26)
[2019-12-24] MEDS: FUROSEMIDE 10 MG/ML 2ML VIAL IV SCH (09:18)
--- NOTE | 2019-12-24 10:20 | NUR ---
RDSCREEN - LOS X 11 Pt admitted with Acute respiratory failure, positive COVID-19 PNA. Pt tolerating 60gm CCD with no report of GI distress. Poor PO intake. WBC 17.5, LDH 330, Alb 3.2. LBM 12/20/19. Recommend continue 60gm CC diet order Recommend Glucerna BID Recommend 60mL ProMod QD RD to continue to monitor. Please notify RD as additional nutrition concerns arise. Thank you.
[2019-12-24 11:24] VITALS: BP 104/54
[2019-12-24] MEDS ORDERED: LORAZEPAM 2 MG TABLET PO PRN (15:00)
[2019-12-24 15:48] VITALS: BP 108/72
--- NOTE | 2019-12-24 16:48 | NUR ---
pt sSP02 has been at best 88-94% while supine towards beginning of the shift, pt has productive cough mostly clear pink tinged sputum noted. 1630 pt assisted to prone for respiratory relief as sp02 88%, pt has intermittent coughing episodes and takes some time to 'catch his breath.' pt also reports 'not feeling like enough air is coming from the mask and hi-flow. Reinforced hi-flow canula and readjusted non-rebreather mask.
[2019-12-24 20:00] VITALS: BP 117/65
[2019-12-24] MEDS: FLUTICASONE/VILANTEROL 1 EACH BLST.W.DEV IH SCH (22:08)
[2019-12-25 00:10] VITALS: BP 122/72
[2019-12-25] MEDS: PHARMACY COMMUNICATION MISC SCH ×5 (00:21→17:39)
[2019-12-25] MEDS: ALBUTEROL INHALER 90MCG/INH IH SCH ×6 (00:21→20:15)
[2019-12-25] MEDS: HYDROMORPHONE HCL 2 MG/ML VIAL IVP PRN ×3 (01:07→06:00)
[2019-12-25 04:18] VITALS: BP_SYST 114; BP_SYST 126; BP_DIAS 63; BP_DIAS 67
[2019-12-25] MEDS: MORPHINE SULFATE 2 MG/ML 1ML SYG IVP PRN (04:42)
[2019-12-25 06:24] LABS: BASOPHILS % (AUTO) 0.4 % (0.0-5.0); HEMATOCRIT 47.4 % (42-54); LYMPHOCYTES % (AUTO) 2.7 % (21.0-51.0); MEAN CORPUSCULAR HEMOGLOBIN 30.5 pg (27.0-33.0); MEAN CORPUSCULAR HGB CONC 34.8 g/dL (32.0-36.0); MEAN CORPUSCULAR VOLUME 87.6 fL (79-99); NEUTROPHILS % (AUTO) 86.3 % (40.0-77.0); PLATELET COUNT (AUTO) 332 K/uL (130-400); RED BLOOD CELL COUNT(AUTO) 5.41 MIL/uL (4.50-6.20); WHITE BLOOD COUNT (AUTO) 17.4 K/uL (4.8-10.8)
[2019-12-25 06:36] LABS: ALANINE AMINOTRANSFERASE 352 U/L (12-78); ALBUMIN 3.1 g/dL (3.5-5.0); ASPARTATE AMINOTRANSFERASE 54 U/L (10-37); BILIRUBIN,TOTAL 1.3 mg/dL (0.2-1.0); CARBON DIOXIDE 25 mmol/L (21-32); CHLORIDE 101 mmol/L (101-111); CREATININE 0.7 mg/dL (0.5-1.5); GLOMERULAR FILTR. RATE CALC 142 mL/min (>60); GLUCOSE,RANDOM 119 mg/dL (70-105); LACTATE DEHYDROGENASE 336 U/L (81-234); POTASSIUM 3.9 mmol/L (3.5-5.1); SODIUM SERUM 136 mmol/L (136-145); UREA NITROGEN, BLOOD 25 mg/dL (7-18)
[2019-12-25 08:00] VITALS: BP 108/78
[2019-12-25] MEDS: FLUTICASONE/VILANTEROL 1 EACH BLST.W.DEV IH SCH ×2 (09:00→22:16)
[2019-12-25] MEDS: ENOXAPARIN SODIUM 60 MG/0.6 ML SQ SCH ×2 (09:49→21:22)
[2019-12-25] MEDS: FUROSEMIDE 10 MG/ML 2ML VIAL IV SCH (09:50)
[2019-12-25] MEDS: METHYLPREDNISOLONE SOD SUCC 40MG/ML 1ML IVP SCH ×3 (09:50→21:23)
[2019-12-25] MEDS: BENZONATATE 100 MG CAPSULE PO SCH ×3 (09:50→21:20)
[2019-12-25] MEDS: ACETYLCYSTEINE 600 MG CAPSULE PO SCH ×2 (09:50→21:20)
[2019-12-25] MEDS: DOXYCYCLINE HYCLATE 100 MG TABLET PO SCH ×2 (09:50→21:20)
[2019-12-25] MEDS: PANTOPRAZOLE SODIUM 40 MG TABLET.DR PO SCH (09:50)
[2019-12-25] MEDS: ASCORBIC ACID 500 MG TAB PO SCH (10:08)
[2019-12-25] MEDS: CEFEPIME HCL 2 GM VIAL IVP SCH ×2 (10:58→21:25)
[2019-12-25 12:00] VITALS: BP 145/74
[2019-12-25 16:00] VITALS: BP 119/76
[2019-12-25] MEDS: HYDROXYZINE HCL 25 MG TABLET PO PRN (16:04)
[2019-12-25] MEDS: ACETAMINOPHEN 325 MG TAB PO PRN (16:05)
[2019-12-25 19:00] VITALS: BP 111/74
[2019-12-25] MEDS: OXYMETAZOLINE HCL SPRAY 15 ML BOTTLE EN SCH (22:16)
[2019-12-26] VITALS (7 sets, daily range): BP systolic 121–138; BP diastolic 78–85
[2019-12-26] MEDS: PHARMACY COMMUNICATION MISC SCH ×5 (01:15→19:43)
[2019-12-26] MEDS: ALBUTEROL INHALER 90MCG/INH IH SCH ×6 (01:52→20:15)
[2019-12-26 06:50] LABS: BASOPHILS % (AUTO) 0.5 % (0.0-5.0); HEMATOCRIT 48.5 % (42-54); LYMPHOCYTES % (AUTO) 2.3 % (21.0-51.0); MEAN CORPUSCULAR HEMOGLOBIN 30.3 pg (27.0-33.0); MEAN CORPUSCULAR HGB CONC 34.6 g/dL (32.0-36.0); MEAN CORPUSCULAR VOLUME 87.4 fL (79-99); MONOCYTES % (AUTO) 4.6 % (3.0-13.0); NEUTROPHILS % (AUTO) 87.6 % (40.0-77.0); PLATELET COUNT (AUTO) 316 K/uL (130-400); RED BLOOD CELL COUNT(AUTO) 5.55 MIL/uL (4.50-6.20); WHITE BLOOD COUNT (AUTO) 16.7 K/uL (4.8-10.8)
[2019-12-26 07:13] LABS: ALANINE AMINOTRANSFERASE 402 U/L (12-78); ASPARTATE AMINOTRANSFERASE 66 U/L (10-37); CARBON DIOXIDE 25 mmol/L (21-32); CHLORIDE 102 mmol/L (101-111); CREATININE 0.9 mg/dL (0.5-1.5); GLOMERULAR FILTR. RATE CALC 106 mL/min (>60); GLUCOSE,RANDOM 132 mg/dL (70-105); LACTATE DEHYDROGENASE 411 U/L (81-234); POTASSIUM 4.2 mmol/L (3.5-5.1); SODIUM SERUM 135 mmol/L (136-145); UREA NITROGEN, BLOOD 24 mg/dL (7-18)
[2019-12-26] MEDS: METHYLPREDNISOLONE SOD SUCC 40MG/ML 1ML IVP SCH ×3 (09:40→22:16)
[2019-12-26] MEDS: ACETYLCYSTEINE 600 MG CAPSULE PO SCH ×2 (09:41→22:16)
[2019-12-26] MEDS: DOXYCYCLINE HYCLATE 100 MG TABLET PO SCH ×2 (09:41→22:16)
[2019-12-26] MEDS: CEFEPIME HCL 2 GM VIAL IVP SCH ×2 (09:41→20:00)
[2019-12-26] MEDS: FUROSEMIDE 10 MG/ML 2ML VIAL IV SCH (09:41)
[2019-12-26] MEDS: ENOXAPARIN SODIUM 60 MG/0.6 ML SQ SCH ×2 (09:42→22:16)
[2019-12-26] MEDS: BENZONATATE 100 MG CAPSULE PO SCH ×3 (09:42→22:16)
[2019-12-26] MEDS: PANTOPRAZOLE SODIUM 40 MG TABLET.DR PO SCH (09:42)
[2019-12-26] MEDS: OXYMETAZOLINE HCL SPRAY 15 ML BOTTLE EN SCH ×2 (09:43→22:15)
[2019-12-26] MEDS: FLUTICASONE/VILANTEROL 1 EACH BLST.W.DEV IH SCH ×2 (09:43→22:15)
[2019-12-26] MEDS: ASCORBIC ACID 500 MG TAB PO SCH (09:50)
[2019-12-26] MEDS: HYDROXYZINE HCL 25 MG TABLET PO PRN (16:44)
--- NOTE | 2019-12-26 18:42 | NUR ---
PT CONTINUES WITH BEDREST, NRB @15L AND HIFLOW AT % SP02 96% WHILE PT IS PRONE. ROUNDING WITH HOSPITALIST, NEW ORDERS NOTED CHEST XRAY AND HEPATIC PANEL. WILL MONITOR FOR RESULTS. PT ANXIOUS AFTER CHEST XRAY, SP02 80-85% INCREASING SLOW AND STEADILY. ADMINISTERED PRN ATARAX AND ASSURED PT TO HELP CALM NERVES. PT ABLE TO CALM BREATHING. PT ASSISTED TO DRINK SUPPLEMENTS SINCE HE IS ELECTING NOT TO EAT LUNCH. WILL CONTINUE TO MONITOR PT AND PLACED POSSESSIONS WITHIN REACH. RT PLACED PT SOLELY ON NRB AT 15L SP02 95-96% WHILE PRONING.
[2019-12-27] MEDS: ALBUTEROL INHALER 90MCG/INH IH SCH ×6 (00:15→20:33)
[2019-12-27] MEDS: HYDROXYZINE HCL 25 MG TABLET PO PRN ×2 (02:21→09:07)
[2019-12-27 03:46] VITALS: BP 122/82
[2019-12-27] MEDS: PHARMACY COMMUNICATION MISC SCH (05:23)
[2019-12-27 07:29] LABS: BASOPHILS % (AUTO) 0.3 % (0.0-5.0); HEMATOCRIT 46.2 % (42-54); LYMPHOCYTES % (AUTO) 2.4 % (21.0-51.0); MEAN CORPUSCULAR HEMOGLOBIN 30.2 pg (27.0-33.0); MEAN CORPUSCULAR HGB CONC 34.6 g/dL (32.0-36.0); MEAN CORPUSCULAR VOLUME 87.2 fL (79-99); MONOCYTES % (AUTO) 3.5 % (3.0-13.0); NEUTROPHILS % (AUTO) 89.8 % (40.0-77.0); PLATELET COUNT (AUTO) 240 K/uL (130-400); RED CELL DISTRIBUTION WIDTH 12.3 % (11.0-15.5); WHITE BLOOD COUNT (AUTO) 16.5 K/uL (4.8-10.8)
[2019-12-27 08:00] VITALS: BP 110/69
[2019-12-27 08:00] LABS: ALBUMIN 2.8 g/dL (3.5-5.0); BILIRUBIN,TOTAL 0.8 mg/dL (0.2-1.0); CREATININE 0.8 mg/dL (0.5-1.5); CRP QUANTITATIVE 36.9 mg/L (0.00-9.0); POTASSIUM 4.5 mmol/L (3.5-5.1); TOTAL PROTEIN, SERUM 6.7 g/dL (6.0-8.3)
[2019-12-27] MEDS: FUROSEMIDE 10 MG/ML 2ML VIAL IV SCH (09:03)
[2019-12-27] MEDS: CEFEPIME HCL 2 GM VIAL IVP SCH ×2 (09:03→21:29)
[2019-12-27] MEDS: DOXYCYCLINE HYCLATE 100 MG TABLET PO SCH ×2 (09:03→21:30)
[2019-12-27] MEDS: PANTOPRAZOLE SODIUM 40 MG TABLET.DR PO SCH (09:03)
[2019-12-27] MEDS: ACETYLCYSTEINE 600 MG CAPSULE PO SCH ×2 (09:04→21:30)
[2019-12-27] MEDS: ASCORBIC ACID 500 MG TAB PO SCH (09:04)
[2019-12-27] MEDS: FLUTICASONE/VILANTEROL 1 EACH BLST.W.DEV IH SCH ×2 (09:05→21:30)
[2019-12-27] MEDS: BENZONATATE 100 MG CAPSULE PO SCH ×3 (09:07→21:30)
[2019-12-27] MEDS: METHYLPREDNISOLONE SOD SUCC 40MG/ML 1ML IVP SCH ×3 (09:07→21:30)
[2019-12-27] MEDS: OXYMETAZOLINE HCL SPRAY 15 ML BOTTLE EN SCH ×2 (09:08→21:29)
[2019-12-27] MEDS: ENOXAPARIN SODIUM 60 MG/0.6 ML SQ SCH ×2 (09:09→21:30)
[2019-12-27 11:00] VITALS: BP_SYST 118; BP_SYST 131; BP_DIAS 72; BP_DIAS 80
[2019-12-27 16:00] VITALS: BP 133/81
[2019-12-27 20:00] VITALS: BP 139/83
[2019-12-27 23:51] VITALS: BP 144/90
[2019-12-28] VITALS (9 sets, daily range): BP systolic 102–142; BP diastolic 59–90
[2019-12-28] MEDS: GUAIFENESIN-DM 200/20 MG 10 ML PO PRN (00:55)
[2019-12-28] MEDS: ALBUTEROL INHALER 90MCG/INH IH SCH ×4 (00:55→12:15)
[2019-12-28] MEDS: HYDROXYZINE HCL 25 MG TABLET PO PRN (00:55)
[2019-12-28] MEDS: CEFEPIME HCL 2 GM VIAL IVP SCH (08:00)
[2019-12-28] MEDS: ASCORBIC ACID 500 MG TAB PO SCH (09:00)
[2019-12-28 09:12] LABS: HEPATITIS A ANTIBODY IGM Negative (Negative); HEPATITIS B CORE IGM Negative (Negative); HEPATITIS Bs ANTIGEN SCREEN P Negative (Negative)
[2019-12-28] MEDS: BENZONATATE 100 MG CAPSULE PO SCH ×2 (10:32→14:00)
[2019-12-28] MEDS: PANTOPRAZOLE SODIUM 40 MG TABLET.DR PO SCH (10:32)
[2019-12-28] MEDS: ACETYLCYSTEINE 600 MG CAPSULE PO SCH (10:32)
[2019-12-28] MEDS: DOXYCYCLINE HYCLATE 100 MG TABLET PO SCH (10:32)
[2019-12-28] MEDS: FUROSEMIDE 10 MG/ML 2ML VIAL IV SCH (10:33)
[2019-12-28] MEDS: METHYLPREDNISOLONE SOD SUCC 40MG/ML 1ML IVP SCH ×2 (10:33→14:36)
[2019-12-28] MEDS: ENOXAPARIN SODIUM 60 MG/0.6 ML SQ SCH (10:34)
[2019-12-28] MEDS: FLUTICASONE/VILANTEROL 1 EACH BLST.W.DEV IH SCH (10:34)
[2019-12-28] MEDS: OXYMETAZOLINE HCL SPRAY 15 ML BOTTLE EN SCH (10:34)
--- NOTE | 2019-12-28 12:00 | NUR ---
pt continues to have difficulty breathing, pt has continuously been prone, oxygen saturation has been 80-85% on NRB at 15L and hiflow nasal canula at 50%, pulse usually tachy 118 resp 25-30. Pt describes having 'episodes' more frequent where he gets short of breath. Today pt has new report of inability to swallow and the oxygen being too much. Spoke with Dr. Hughes made aware of pt reports new orders entered.
[2019-12-28] MEDS ORDERED: NYSTATIN 100000 UNIT/ML 5ML UDCUP PO SCH (12:45)
--- NOTE | 2019-12-28 14:58 | NUR ---
pt complains of back pain, warm packs placed onto back for pain relief.
--- NOTE | 2019-12-28 16:45 | NUR ---
family made aware of pt status. pt vitals entered into flowsheets. pt continues to be prone, with resp distress. Bipap to be attempted.
[2019-12-28] MEDS ORDERED: FENTANYL CITRATE PF 50 MCG/1 ML 2ML VIAL ONE (17:16)
[2019-12-28] MEDS ORDERED: MIDAZOLAM HCL 1 MG/ML 2ML VIAL ONE (17:34)
[2019-12-28] MEDS ORDERED: PROPOFOL 1000 MG/100 ML 100 ML IV STA (17:36)
[2019-12-28] MEDS ORDERED: SODIUM CHLORIDE 0.9% 500ML 500 ML IV ONE (17:46)
[2019-12-28 17:58] LABS: ABG BASE EXCESS -4.9 mmol/L (-2.0-3.0); ABG HCO3 23.7 mmol/L (21.0-28.0); ABG OXYGEN SATURATION 76.5 % (95.0-99.0); ABG PCO2 59 mmHg (35-48)
[2019-12-28] MEDS ORDERED: METOPROLOL TARTRATE 1 MG/ML 5ML VIAL IV ONE (18:10)
[2019-12-28] MEDS ORDERED: FENTANYL 2500MCG+NS 250ML 250 ML IV ONE (18:51)
[2019-12-28] MEDS ORDERED: NOREPINEPHRINE 4MG/NS 250ML 250 ML IV SCH ×2 (19:00→19:30)
[2019-12-28] MEDS ORDERED: MIDAZOLAM 50MG-0.9% NS 50ML 50 ML BAG IV SCH (19:00)
[2019-12-28 19:14] LABS: ABG BASE EXCESS -6.9 mmol/L (-2.0-3.0); ABG HCO3 22.7 mmol/L (21.0-28.0); ABG PCO2 63 mmHg (35-48)
[2019-12-28] MEDS ORDERED: COMPOUND NARC IV MISC 1 EACH IVSOLN MISC PRN (19:15)
[2019-12-28] MEDS ORDERED: FENTANYL 2500MCG+NS 250ML 250 ML IV SCH (19:15)
[2019-12-28] MEDS ORDERED: SODIUM BICARB 50MEQ 50ML VIAL IV STA ×2 (19:21→19:28)
[2019-12-28] MEDS ORDERED: SODIUM BICARB 50MEQ 50ML VIAL ONE (19:24)
[2019-12-28] MEDS ORDERED: ROCURONIUM BROMIDE 250 MG in SODIUM CHLORIDE 0.9% 250 ML IV SCH (19:30)
[2019-12-28] MEDS ORDERED: VASOPRESSIN 40 UNITS in SODIUM CHLORIDE 0.9% 40 ML IV SCH (19:30)
--- NOTE | 2019-12-28 20:19 | NUR ---
Intubated Patient At the beginning of my shift, I walk onto the floor to the patient already intubated. I received report from the day shift nurse stating that the patient started to decline & he was placed on a BiPap until his ICU room was available. However, the Bipap was not efficient enough. Therefore, he was immediately intubated @1735. Numerous ICU drops were initiated. I began my shift @1840. We have been taking great measures to help save his life since. Report was passed to the ICU maintenance technician 2nd shift nurse.
--- NOTE | 2019-12-28 20:30 | NUR ---
Received patient Received patient post intubation, Central line was placed to right femoral vein, will began POC
[2019-12-28] MEDS ORDERED: SYRING IV SCH (21:00)
[2019-12-28] MEDS ORDERED: SODIUM BICARB 8.4% IV SCH (21:00)
[2019-12-28] MEDS ORDERED: SODIUM CHLORIDE 0.9% IV SCH ×2 (21:00→23:15)
--- NOTE | 2019-12-28 21:30 | NUR ---
ELEVATED HEART RATE CONTACTED DR. AUGUST REGARDING PATIENT'S HIGH HEART RATE AND LOW BLOOD PRESSURE, MD ORDERED PRECEDEX AND CONFIRMED PATIENT WAS IN PRONE POSITION, NOTIFIED MD OF THE DOSAGES OF CURRENT IV MEDICATIONS. WILL CONTINUE TO MONITOR.
[2019-12-28] MEDS: MIDAZOLAM 50MG-0.9% NS 50ML 50 ML IV SCH ×2 (21:53→22:00)
[2019-12-28 22:04] LABS: ABG HCO3 22.6 mmol/L (21.0-28.0); ABG OXYGEN SATURATION 69.9 % (95.0-99.0); ABG PCO2 55 mmHg (35-48)
[2019-12-28] MEDS ORDERED: DEXMEDETOMIDINE HCL 200 MCG in SODIUM CHLORIDE 0.9% 50 ML IV SCH (22:15)
[2019-12-28] MEDS ORDERED: DEXMEDETOMIDINE HCL 200 MCG/2 ML VIAL IV ONE (22:23)
[2019-12-28] MEDS ORDERED: DEXMEDETOMIDINE HCL IV SCH (23:15)
--- NOTE | 2019-12-28 23:50 | NUR ---
Contacted MD regarding HR, BP, and ABG Called Dr. Hughes regarding HR of 169-171 after being on Precedex, Bp 92/54, and read results of ABG... Ordered RT to increase Peep to 14 and check ABG in one hour 12:45 am
[2019-12-29] MEDS ORDERED: PROPOFOL 1000 MG/100 ML 100 ML IV ONE (00:07)
[2019-12-29] MEDS ORDERED: PROPOFOL 1000 MG/100 ML 100 ML IV SCH (00:15)
[2019-12-29] MEDS ORDERED: SODIUM BICARB 50MEQ 50ML VIAL ONE ×2 (00:20→03:28)
[2019-12-29 00:39] VITALS: BP 113/69
[2019-12-29 01:48] LABS: ABG BASE EXCESS -3.5 mmol/L (-2.0-3.0); ABG HCO3 23.2 mmol/L (21.0-28.0); ABG OXYGEN SATURATION 68.8 % (95.0-99.0); ABG PCO2 48 mmHg (35-48)
--- NOTE | 2019-12-29 02:00 | NUR ---
Pt transported Transported patient from 4th floor to 2nd floor room 205, Pt stable, vital signs remained the same.
--- NOTE | 2019-12-29 02:10 | NUR ---
Change in condition Called Dr. Hughes to inform him of heart rate still elevated, ordered new medication and asked me to call the family, While on the phone with the patient's , he coded, code called at 0217 we were able to establish a heart rate. Spouse was made aware of the code and she wish to continue with full code. The patient coded 3 additional times, The family was called or she called here during each code and she wants to continue with full code. After the 3rd code Dr. Hughes was called, new orders were given and the patient coded immediately for the 4th code, called at 0321, a pulse was established. At this time the patient is stable, the family wishes to continue with full code. See Code sheet for additional information.
[2019-12-29] MEDS ORDERED: METOPROLOL TARTRATE 1 MG/ML 5ML VIAL IV SCH (02:15)
[2019-12-29 02:36] LABS: HEMATOCRIT 47.6 % (42-54); MEAN CORPUSCULAR HEMOGLOBIN 30.3 pg (27.0-33.0); MEAN CORPUSCULAR HGB CONC 33.4 g/dL (32.0-36.0); MEAN CORPUSCULAR VOLUME 90.8 fL (79-99); NUCLEATED RED BLOOD CELLS 0.1 % (0.0-0.19); PLATELET COUNT (AUTO) 243 K/uL (130-400); RED BLOOD CELL COUNT(AUTO) 5.24 MIL/uL (4.50-6.20); RED CELL DISTRIBUTION WIDTH 12.8 % (11.0-15.5)
[2019-12-29 02:55] LABS: CREATININE 2.4 mg/dL (0.5-1.5); POTASSIUM 5.1 mmol/L (3.5-5.1); WHITE BLOOD COUNT (AUTO) 38.2 K/uL (4.8-10.8)
[2019-12-29 02:59] LABS: ALBUMIN 2.4 g/dL (3.5-5.0); BILIRUBIN,TOTAL 0.8 mg/dL (0.2-1.0); MAGNESIUM 2.9 mg/dL (1.80-2.40); PHOSPHORUS 5.4 mg/dL (2.5-4.9); TOTAL PROTEIN, SERUM 5.6 g/dL (6.0-8.3)
[2019-12-29] MEDS ORDERED: EPINEPHRINE 1 MG/ML AMPULE ONE (03:13)
[2019-12-29] MEDS ORDERED: PHENYLEPHRINE HCL 10 MG/ML 1ML VIAL IV ONE (03:22)
[2019-12-29 03:45] LABS: BAND NEUTROPHILS % (MANUAL) 2 % (0-2); LYMPHOCYTES % (MANUAL) 6 % (22-44); MAN.DIFF COMMENT-IMPRESSION MANUAL DIFFERENTIAL; MONOCYTES % (MANUAL) 9 % (2-9); PLATELET MORPHOLOGY COMMENT ADEQUATE; SEGMENTED NEUTROPHILS % 83 % (40-70)
[2019-12-29] MEDS ORDERED: EPHEDRINE SULFATE 50 MG/ML AMPULE ONE (04:09)
[2019-12-29 04:21] LABS: ABG BASE EXCESS -22.4 mmol/L (-2.0-3.0); ABG HCO3 8.7 mmol/L (21.0-28.0); ABG PCO2 39 mmHg (35-48)
[2019-12-29] MEDS ORDERED: CALCIUM GLUCONATE 1 GM/10 ML VIAL IV ONE (04:24)
--- NOTE | 2019-12-29 04:48 | NUR ---
Pt after 5th code at 0425. Family was notified by Dr. Chaudhari, Dr. Hughes was called by Head Of Acquisitions, KATE called per myself, and organs were declined due to Dx of Covid.
--- NOTE | 2019-12-29 13:06 | NUR ---
1700 RT in with pt placing bipap. Pt unable to tolerate. 1725 assisted intubation team. 1800 Pt continued to be monitored by myself and charge nurse, spoke with Dr. Hughes on the phone who asked to speak to RT. RT given phone to further advise. 1840 active report given to oncoming nurse who began assisting to stabilize pt upon arriving to the floor.
== END 2019-12-29 04:25 | disposition expired | DRG 208 ==
LOC: EDH 12:54 → EDHIP 12:55 → 4DH 12-14 23:30 → 2AH 12-29 01:59
PROVIDERS: ADMIT Family Medicine; ATTEND Family Medicine
PROC: 30233K1 Transfusion of Nonautologous Frozen Plasma into Peripheral Vein, Percutaneous Approach (ICD-10-PCS; principal; 2019-12-13)
PROC: 5A09357 Assistance with Respiratory Ventilation, Less than 24 Consecutive Hours, Continuous Positive Airway Pressure (ICD-10-PCS; 2019-12-23)
PROC: 5A09357 Assistance with Respiratory Ventilation, Less than 24 Consecutive Hours, Continuous Positive Airway Pressure (ICD-10-PCS; 2019-12-24)
PROC: 5A1935Z Respiratory Ventilation, Less than 24 Consecutive Hours (ICD-10-PCS; 2019-12-28)
PROC: 5A12012 Performance of Cardiac Output, Single, Manual (ICD-10-PCS; 2019-12-28)
PROC: 0BH17EZ Insertion of Endotracheal Airway into Trachea, Via Natural or Artificial Opening (ICD-10-PCS; 2019-12-28)
DX: U07.1 COVID-19 (principal); J12.89 Other viral pneumonia; J96.01 Acute respiratory failure with hypoxia; T79.7XXA Traumatic subcutaneous emphysema, initial encounter; F41.9 Anxiety disorder, unspecified; E66.01 Morbid (severe) obesity due to excess calories; R73.03 Prediabetes; Z68.39 Body mass index [BMI] 39.0-39.9, adult; Z91.19 Patient's noncompliance with other medical treatment and regimen; Y93.89 Activity, other specified; Y92.89 Other specified places as the place of occurrence of the external cause; Y99.8 Other external cause status
CPT/HCPCS: 31500; 36415; 36430; 36600; 71045; 80048; 80053; 80074; 80076; 81001; 82435; 82550; 82728; 82803; 82947; 82948; 83036; 83605; 83615; 83735; 83874; 83880; 84100; 84132; 84145; 84295; 84484; 85018; 85025; 85027; 85378; 85610; 85730; 86140; 86900; 86901; 86927; 87040; 87088; 87324; 92950; 93005; 94002; 94003; 94660; G0378; J0171; J0456; J0610; J0692; J0696; J1170; J1200; J1650; J1940; J2250; J2370; J2405; J2704; J2920; J2930; J3010; J3490; J7030; J7040; J7050; P9017; U0003